=== PATIENT | female | born 1980 | race Caucasian/White ===

== ENCOUNTER 2016-07-31 18:34 | Emergency (ER) | payer BC, MEDICAID ==
[~2016-07-31] VITALS: Ht 162.6 cm; Wt 72.6 kg
[2016-07-31 18:34] VITALS: BP 108/77
== END 2016-07-31 20:19 | disposition home or self-care (01) ==
LOC: ER 18:35
DX: M79.672 Pain in left foot (principal)
CPT/HCPCS: 73610-TC; 73630-TC; A4606; Z7610

== ENCOUNTER 2020-12-22 18:05 | Emergency (ER) | payer BC, MEDICAID ==
[~2020-12-22] VITALS: Ht 162.6 cm; Wt 81.6 kg
[2020-12-22 18:35] VITALS: BP 114/82
--- NOTE | 2020-12-22 18:41 | NUR ---
BIBS FOR FEELING WEAK X 7 DAYS. IN ROOM AIR AND DENIES SOB. RESPIRATION REGULAR AND UNLABORED. WILL CONTINUE TO MONITOR THE PATIENT.
--- NOTE | 2020-12-22 19:13 | NUR ---
Xray at bedside.
--- NOTE | 2020-12-22 19:13 | NUR ---
COVID SWAB DONE AND SENT TO THE LAB
--- NOTE | 2020-12-22 19:18 | NUR ---
REPORT GIVEN TO NURSE MIKAYLA FOR MIHAI
[2020-12-22] MEDS ORDERED: AMOX500T2 PO (20:04)
[2020-12-22] MEDS ORDERED: GUAI10SY3 PO (20:04)
--- NOTE | 2020-12-27 16:25 | NUR ---
CALL BACK FROM [facility],INFORMED OF POSITIVE PCR TEST
== END 2020-12-22 20:49 | disposition home or self-care (01) ==
LOC: ER 18:07
DX: U07.1 COVID-19 (principal); J12.82 Pneumonia due to coronavirus disease 2019
CPT/HCPCS: 71045; 87426; 99284; C9803; U0003

== ENCOUNTER 2023-06-17 12:42 | Emergency (ER) | payer MEDICAID, OTHER ==
[~2023-06-17] VITALS: Ht 162.6 cm; Wt 86.2 kg
[~2023-06-17 12:42] MED LIST: AMOX500T2 PO; GUAI10SY3 PO
[2023-06-17 14:02] LABS: BASOPHILS % (AUTO) 0.3 % (0.0-2.0); EOSINOPHILS # (AUTO) 0.1 K/uL (0.0-0.7); EOSINOPHILS % (AUTO) 1.6 % (0.0-6.0); HEMATOCRIT 40 % (33-45); HEMOGLOBIN 13.9 g/dL (11.5-14.8); LYMPHOCYTES # (AUTO) 1.2 K/uL (0.8-4.8); LYMPHOCYTES % (AUTO) 18.7 % (20.0-44.0); MEAN CORPUSCULAR HEMOGLOBIN 32 PG (26.0-33.0); MEAN CORPUSCULAR HGB CONC 35 g/dl (31.0-36.0); MEAN CORPUSCULAR VOLUME 92 fL (82-100); MONOCYTES # (AUTO) 0.4 K/uL (0.1-1.30); MONOCYTES % (AUTO) 6.2 % (2.0-12.0); NEUTROPHILS # (AUTO) 4.8 K/uL (1.8-8.9); NEUTROPHILS % (AUTO) 73.2 % (43.0-81.0); PLATELET COUNT (AUTO) 276 K/uL (150-450); RED BLOOD CELL COUNT(AUTO) 4.38 MIL/uL (4.0-5.2); RED CELL DISTRIBUTION WIDTH 12.6 % (11.5-15.0); WHITE BLOOD COUNT (AUTO) 6.5 K/uL (4.3-11.0)
[2023-06-17] MEDS ORDERED: ONDANSETRON HCL/PF 4 MG/2 ML VIAL ONE (14:29)
[2023-06-17] MEDS: KETOROLAC TROMETHAMINE 15 MG/ML VIAL IV ONE (14:30)
[2023-06-17] MEDS: ONDANSETRON HCL/PF 4 MG/2 ML VIAL IVP ONE (14:34)
[2023-06-17] MEDS: IV NS 0.9% 1,000 ML BAG IV ONE (14:34)
[2023-06-17 14:36] LABS: APPEARANCE,URINE BLOODY (CLEAR)
[2023-06-17 14:37] LABS: COLOR,URINE RED (YELLOW)
[2023-06-17 14:45] LABS: PREGNANCY TEST URINE QUAL NEGATIVE (NEGATIVE)
[2023-06-17 15:30] LABS: CALCIUM, SERUM 8.1 mg/dL (8.5-10.1); CREATININE 0.7 mg/dL (0.6-1.3); POTASSIUM 3.8 mmol/L (3.5-5.1)
[2023-06-17 15:35] LABS: RBC,URINE TOO NUMEROUS TO COUN /HPF (0-2)
[2023-06-17 15:36] LABS: BACTERIA,URINE None seen /HPF (None Seen); WBC,URINE 0-2 /HPF (0-3)
[2023-06-17] MEDS ORDERED: IBUP-1953 PO (17:16)
[2023-06-17 17:23] VITALS: BP 121/75; TEMP 98; O2SAT 99
== END 2023-06-17 17:24 | disposition home or self-care (01) ==
LOC: ER 12:46
DX: R10.2 Pelvic and perineal pain (principal)
CPT/HCPCS: 99285; 74176; 96374; 76856; 96361; 85025; 80048; 84703; 81001; 36415; 84702; J2405; J7030